=== PATIENT | female | born 1965 | race Caucasian/White ===

== ENCOUNTER → 2016-09-01 | Outpatient (CLI) | payer MEDICARE, OTHER ==
[~2016-09-01] MED LIST: ALDACTONE25 MG PO; ANTI-DIARRHEAL2 M1 PO; ATORVASTATIN CA40 MG PO; FUROSEMIDE40 MG PO; GABAPENTIN300 M2 PO; GABAPENTIN600 MG PO; KLOR-CON PO; LISINOPRIL2.5 MG PO; METFORMIN PO; METHSCOPOLAMINE5 MG PO; MOBIC15 MG PO; OMEPRAZOLE20 M1 PO; VIT E PO
--- NOTE | ~2016-09-01 | CR97 ---
[facility] A Service of [facility] RADIOLOGY TEXT RESULTS PATIENT: JOHN BRITO LOCATION: [facility] : 69 UNIT #: [id number] AGE: [address]: Valentin Amador SEX: F ORDER DR: [id number] [facility] [address] [place], [place] [address] [id number] O MR#: [id number] #: [id number] NAME: JOHN BRITO : 1965 SEX: F STUDY DATE/TIME: 09/01/2016 7:40 UNIT: [facility] ROOM: STUDY DESCRIPTION: CR Esophagram Attending Physician: Valentin Amador M.D. Referring Physician: Valentin Amador M.D. Ordering Physician: Valentin Amador M.D. Primary Care Physician: Komal Zaragoza M.D. MEDICAL IMAGING REPORT This report is preliminary unless electronic signature is present EXAM Barium esophagram INDICATIONS Patient feels like things are getting stuck in the throat and the patient is vomiting. History of Lap-Band placement. The fluoroscopy time is 0.5 minutes. 11 fluoroscopic images were taken. COMPARISON STUDIES The study is compared with abdominal radiograph from 10/21/2014. FINDINGS Machine Overhauler image was obtained showing stable position of the patient's Lap-Band. The patient was given barium and there is free passage of barium from the esophagus into the stomach without evidence of Lap-Band slippage. No evidence for obstruction or stricture. IMPRESSION Stable Lap-Band. No evidence for Lap-Band slippage. Dictated by... Elie Vasquez M.D. THIS IS AN ELECTRONICALLY VERIFIED REPORT Elie Vasquez M.D. at 09/04/2016 7:25 AM [place] TD: 09/01/2016 16:53 JOB #: [id number] MEDICAL IMAGING REPORT Page 1 of 1 COPY
== END | disposition home or self-care (01) ==
LOC: CRAD 08-29 08:00
DX: R11.2 Nausea with vomiting, unspecified (principal); Z98.84 Bariatric surgery status
CPT/HCPCS: 74220